=== PATIENT | male | born 2000 | race Asian ===

== ENCOUNTER 2019-05-25 09:26 | Emergency (ER) | payer OTHER ==
[~2019-05-25] VITALS: Ht 182.9 cm; Wt 90.7 kg
[2019-05-25] MEDS ORDERED: IV NORMAL SALINE 1,000ML 1,000 ML IV SCH (10:02)
--- NOTE | 2019-05-25 10:05 | PHYS DOC ---
Past History Past Surgical History: Appendectomy Adult General Chief Complaint Chief Complaint: ABDOMINAL PAIN HPI HPI Patient is a 18-year-old male who presented to ER today for evaluation of lower abdominal pain, associated with some nausea since yesterday. Patient also complaint of been constipated for a few days. he denies any fever, no blood in his stool. Patient has history of previous appendectomy. Nothing makes the pain worse or better. Patient described the pain is aching cramming in nature. All other ROS is negative unless otherwise noted in HPI Review of Systems Review of Systems See above Physical Exam Physical Exam See above Constitutional: Well developed, well nourished, no acute distress, non-toxic appearance. [] HENT: Normocephalic, atraumatic, bilateral external ears normal, oropharynx moist, no oral exudates, nose normal. [] Eyes: PERRLA, EOMI, conjunctiva normal, no discharge. [] Neck: Normal range of motion, no tenderness, supple, no stridor. [] Cardiovascular:Heart rate regular rhythm, no murmur [] Lungs & Thorax: Bilateral breath sounds clear to auscultation [] Abdomen: Bowel sounds normal, soft, There is tenderness to palpation in suprapubic area, NO rebound, no guarding, no masses, no pulsatile masses. [] Skin: Warm, dry, no erythema, no rash. [] Back: No tenderness, no CVA tenderness. [] Extremities: No tenderness, no cyanosis, no clubbing, ROM intact, no edema. [] Neurologic: Alert and oriented X 3, normal motor function, normal sensory func tion, no focal deficits noted. [] Psychologic: Affect normal, judgement normal, mood normal. [] EKG EKG [] Radiology/Procedures Radiology/Procedures [][address] [address] IMAGING REPORT Signed PATIENT: YANNI HUGGINS LACCOUNT: [id number] : 2000 LOCATION: ER AGE: 18 SEX: M EXAM STATUS: REG ER ORD. PHYSICIAN: MIR GROSSMAN DO REASON: Abdominal pain, nausea PROCEDURE: CT ABD PELV W/ IV CONTRST ONLY EXAM: CT Abdomen and Pelvis with IV contrast INDICATION: Abdominal pain and nausea TECHNIQUE: Multi-detector row CT images were acquired from the lung bases through the abdomen and pelvis with the use of IV contrast. Sagittal and coronal images were acquired from the transaxial data. All CT scans performed at this facility utilize dose optimization techniques as appropriate to the exam, including the following: Automated exposure control and adjustment of the mA and/or KV according to patient size (this includes techniques or standardized protocols for targeted exams where dose is indication/reason for exam). IV CONTRAST: Administered ORAL CONTRAST: Not administered DLP 1511 mGycm COMPARISON: None FINDINGS: LOWER CHEST: Unremarkable LIVER: Moderate diffuse hepatic steatosis. BILIARY SYSTEM: Gallbladder is unremarkable. Bile ducts are not dilated. PANCREAS: Unremarkable SPLEEN: Unremarkable ADRENALS: Unremarkable KIDNEYS & URETERS: Unremarkable BLADDER: Unremarkable REPRODUCTIVE ORGANS: Unremarkable GASTROINTESTINAL: The stomach, small bowel, and colon are unremarkable. The appendix is surgically absent. MESENTERY/PERITONEUM/RETROPERITONEUM: Unremarkable VASCULAR: Unremarkable LYMPH NODES: Mildly prominent mesenteric lymph nodes are present diffusely. No bulky adenopathy OSSEOUS & SOFT TISSUES: Unremarkable IMPRESSION: Mildly reactive mesenteric lymph nodes and fatty liver. Otherwise unremarkable CT of the abdomen and pelvis. No evidence of bowel Course & Med Decision Making Course & Med Decision Making Pertinent Labs and Imaging studies reviewed. (See chart for details) [] Dragon Disclaimer Dragon Disclaimer This electronic medical record was generated, in whole or in part, using a voice recognition dictation system. Departure Departure: Impression: Primary Impression: Abdominal pain Disposition: 01 HOME, SELF-CARE Condition: STABLE Referrals: AINSLEY HUGHES MD (PCP) FOLLOW UP WITH YOUR DOCTOR. Patient Instructions: Abdominal Pain Additional Instructions: Thank you for visiting our Emergency Department. We appreciate you trusting us with your care. If any additional problems come up don't hesitate to return to visit us. Please follow up with your primary care provider so they can plan eric tional care if needed and know about the problem that you had. If symptoms worsen come back to the Emergency Department. Any concerning symptoms that start such as chest pain, shortness of air, weakness or numbness on one side of the body, running high fevers or any other concerning symptoms return to the ER. Scripts Ondansetron Hcl (ZOFRAN) 8 Mg Tablet 1 TAB PO Q8HRS for NAUSEA, #12 TAB 1 Refill Prov: MIR GROSSMAN DO 05/25/19 MIR GROSSMAN DO May 25, 2019 10:05
[2019-05-25] MEDS ORDERED: ONDANSETRON PF 4 MG/2 ML VIAL. IVP ONE (10:30)
[2019-05-25 10:44] VITALS: BP 148/73
[2019-05-25 10:53] LABS: BASO % 0 % (0-3); EOS % 0 % (0-3); HEMATOCRIT 51.5 % (39.0-53.0); HEMOGLOBIN 17.3 g/dL (13.0-17.5); LYMPH # 1.3 x10^3/uL (1.0-4.8); LYMPH % 10 % (24-48); MEAN CORPUSCULAR HEMOGLOBIN 30 pg (25-35); MEAN CORPUSCULAR HGB CONC 34 g/dL (31-37); MEAN CORPUSCULAR VOLUME 88 fL (79-100); MONO # 0.8 x10^3/uL (0.0-1.1); MONO % 6 % (0-9); NEUT # 11.1 x10^3uL (1.8-7.7); NEUT % 84 % (31-73); PLATELET COUNT 247 x10^3/uL (140-400); RED BLOOD COUNT 5.83 x10^6/uL (4.30-5.70); WHITE BLOOD COUNT 13.3 x10^3/uL (4.0-11.0)
[2019-05-25 11:04] LABS: CALCIUM 9.2 mg/dL (8.5-10.1); CREATININE 0.9 mg/dL (0.7-1.3); GFR 108.7; POTASSIUM 3.6 mmol/L (3.5-5.1)
[2019-05-25 11:14] LABS: ALBUMIN 4.1 g/dL (3.4-5.0); ALBUMIN/GLOBULIN RATIO 0.9 (1.0-1.7); TOTAL BILIRUBIN 1.3 mg/dL (0.2-1.0); TOTAL PROTEIN 8.5 g/dL (6.4-8.2)
[2019-05-25] MEDS ORDERED: IOHEXOL 300 MG/ML 75 ML VIAL. IV ONE (11:30)
[2019-05-25] MEDS ORDERED: CONTRAST GIVEN MC PRN (11:30)
[2019-05-25 11:41] LABS: CLARITY,URINE CLEAR; COLOR,URINE YELLOW
--- NOTE | 2019-05-25 11:41 | RAD ---
EXAM: CT Abdomen and Pelvis with IV contrast INDICATION: Abdominal pain and nausea TECHNIQUE: Multi-detector row CT images were acquired from the lung bases through the abdomen and pelvis with the use of IV contrast. Sagittal and coronal images were acquired from the transaxial data. All CT scans performed at this facility utilize dose optimization techniques as appropriate to the exam, including the following: Automated exposure control and adjustment of the mA and/or KV according to patient size (this includes techniques or standardized protocols for targeted exams where dose is indication/reason for exam). IV CONTRAST: Administered ORAL CONTRAST: Not administered DLP 1511 mGycm COMPARISON: None FINDINGS: LOWER CHEST: Unremarkable LIVER: Moderate diffuse hepatic steatosis. BILIARY SYSTEM: Gallbladder is unremarkable. Bile ducts are not dilated. PANCREAS: Unremarkable SPLEEN: Unremarkable ADRENALS: Unremarkable KIDNEYS & URETERS: Unremarkable BLADDER: Unremarkable REPRODUCTIVE ORGANS: Unremarkable GASTROINTESTINAL: The stomach, small bowel, and colon are unremarkable. The appendix is surgically absent. MESENTERY/PERITONEUM/RETROPERITONEUM: Unremarkable VASCULAR: Unremarkable LYMPH NODES: Mildly prominent mesenteric lymph nodes are present diffusely. No bulky adenopathy OSSEOUS & SOFT TISSUES: Unremarkable IMPRESSION: Mildly reactive mesenteric lymph nodes and fatty liver. Otherwise unremarkable CT of the abdomen and pelvis. No evidence of bowel obstruction, acute inflammation or perforation Electronically signed by: Brown Soliz MD (05/25/2019 11:38 AM) [facility]
[2019-05-25 11:42] LABS: BACTERIA,URINE 0 /HPF (0-FEW); BILIRUBIN,URINE NEG (NEG); GLUCOSE,URINE NEG (NEG); NITRITE,URINE NEG (NEG); RBC,URINE OCC /HPF (0-2); SQUAMOUS EPITHELIAL CELL,UR FEW /LPF; UROBILINOGEN,URINE 0.2 mg/dL (0.2 mg/dL)
[2019-05-25] MEDS ORDERED: KETOROLAC 30 MG/ML VIAL. IVP ONE (12:00)
[2019-05-25] MEDS ORDERED: ONDA8TAB9 PO (12:41)
== END 2019-05-25 12:51 | disposition home or self-care (01) ==
LOC: ER 09:26
DX: R10.30 Lower abdominal pain, unspecified (principal); R11.0 Nausea; Z90.49 Acquired absence of other specified parts of digestive tract
CPT/HCPCS: 36415; 74177; 80053; 81001; 83690; 85025; 96374; 96375; 99285; J1885; J2405; Q9967; J7030

== ENCOUNTER 2019-11-30 01:01 | Emergency (ER) | payer OTHER ==
[~2019-11-30] VITALS: Ht 180.3 cm; Wt 114.7 kg
[~2019-11-30 01:01] MED LIST: ONDA8TAB9 PO
[2019-11-30] MEDS ORDERED: IV RINGERS SOLUTION,LACTATED 1,000 ML IV SCH (01:12)
--- NOTE | 2019-11-30 01:12 | PHYS DOC ---
Past History Past Medical History: Anxiety, High Cholesterol Past Surgical History: Appendectomy Alcohol Use: None Drug Use: None General Adult HPI: HPI: ".. I ve been having this chest pain now ... off and on since .. .. I did have some work up for it in [place].. .. they said the blood work and ekg .. chest xray were negative.. 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 . it seem s to be worse since .. I started taking classes on line and at .. 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 It it happen s two or three times a month now.. It been somewhat constant since yesterday... it seems now asso ciated.. with some nausea.. .. It antonio would not let me rest tonight... ".. " I drove myself here.. 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 Patient states chest pain has been intermittent. Pain usually lasts 1 to a maximum of 5 minutes. There may be some association with social stresses- move here from [place], loss of belongings in the move that remain in [place]. Recent stressors of school. Patient also states his seasonal allergies are much worse here in [place] compared to [place]. Patient has not had any cardiac stress testing. Patient denies any recent travel outside [facility]. Patient denies any trauma. Patient denies any fever chills or cough. Patient was seen here on 05/25 for abdomen pain shortly after his move here with his spouse in May. Patient has been using a lot more caffeine recently. Patient denies any dysrhythmias with the chest pain. Patient has had some recent increase in reflux or GERD complaints. No tarry stools. There is some family history of cardiac disease with grandfather and mother had a cardiac procedure that stop a rapid irregular heart rate. Both grandfather and mother symptoms started in ages 40s . No history of coagulopathy, DVTs or pulmonary embolisms with him or family members. Patient has had history of previous elevated triglycerides. Review of Systems: Review of Systems: Constitutional: Denies fever or chills Eyes: Denies change in visual acuity HENT: Denies nasal congestion or sore throat Respiratory: Denies cough or shortness of breath Cardiovascular: Hx of short intermittent episodes of chest pain since February 2019 GI: Denies abdominal pain, nausea, vomiting, bloody stools or diarrhea : Denies dysuria Musculoskeletal: Denies back pain or joint pain Integument: Denies rash Neurologic: Denies headache, focal weakness or sensory changes Endocrine: Denies polyuria or polydipsia Lymphatic: Denies swollen glands Psychiatric: Denies depression or anxiety Heart Score: HEART Score for Chest Pain: HEART Score for Chest Pain Response (Comments) Value History Slighlty/Non-Suspicious 0 ECG Nonspecific Repolarizatio 1 Age < 45 0 Risk Factors No Risk Factors 0 Troponin < Normal Limit 0 Total 1 Risk Factors: Risk Factors: DM, Current or recent (<one month) smoker, HTN, HLP, family history of CAD, obesity. Risk Scores: Score 0 - 3: 2.5% MACE over next 6 weeks - Discharge Home Score 4 - 6: 20.3% MACE over next 6 weeks - Admit for Clinical Observation Score 7 - 10: 72.7% MACE over next 6 weeks - Early Invasive Strategies Family History: Family History: Rapid Heart rates with mother- txed with procedure?-Age 40, ablation, history of cardiac disorder with grandfather starting at age 40 Current Medications: Current Meds: See nursing for home meds Allergies: Allergies: Allergies Coded Allergies Type Severity Reaction Last Updated Verified No Known Drug Allergies 05/25/19 No Physical Exam: PE: Constitutional: no acute distress, non-toxic appearance. [] HENT: Normocephalic, atraumatic, bilateral external ears normal, oropharynx moist, no oral exudates, nose normal. Plastic ear studs . Eyes: PERRLA, EOMI, conjunctiva normal, no discharge. [] Neck: Normal range of motion, no tenderness, supple, no stridor. [] Cardiovascular:Heart rate regular rhythm, no murmur []. The patient does have an occasional PVC per monitor. Was noted to have occasional dropped beat as of almost [place] heart block type 2. Lungs & Thorax: Bilateral breath sounds equal apex on auscultation [] Abdomen: Bowel sounds normal, soft, no tenderness, no masses, no pulsatile masses. Old surgery scars. Skin: Warm, dry, no erythema, no rash. [] Back: No tenderness, no CVA tenderness. [] Extremities: No tenderness, no cyanosis, no clubbing, ROM intact, no edema. [] No cording appreciated. Neurologic: Alert and oriented X 3, normal motor function, normal sensory fu nction, no focal deficits noted. [] Psychologic: Affect anxious, judgement normal, mood normal. [] EKG: EKG: My interpretation EKG shows a sinus rhythm. Does have an acetone 1 and 2. No findings of acute STEMI. Was noted to have occasional PVCs on monitor and occasional dropped beat due to a prolonged VT interval .[] Radiology/Procedures: Radiology/Procedures: [][address] [address] IMAGING REPORT Signed PATIENT: YANNI HUGGINS LACCOUNT: [id number] : 2000 LOCATION: ER AGE: 19 SEX: M EXAM STATUS: REG ER ORD. PHYSICIAN: KALEB HAMEED MD REASON: cp PROCEDURE: CHEST PA & LATERAL EXAM: CHEST PA LATERAL INDICATION: Reason: cp / Spl. Instructions: / History: . TECHNIQUE: PA and lateral views COMPARISON: abdomen CT 05/25/19 FINDINGS: The heart size is normal. The great vessels appear unremarkable. There is no hilar or mediastinal mass. The lungs are clear. There is no pleural effusion or pneumothorax. There are no significant osseous abnormalities. IMPRESSION: No active cardiopulmonary disease. Electronically signed by: Davida Soliz MD (11/30/2019 3:04 AM) [facility] [place] DICTATED AND SIGNED BY: DAVIDA SOLIZ MD DATE: 11/30/19 0304 CC: KALEB HAMEED MD; AINSLEY HUGHES MD ~ Course & Med Decision Making: Course & Med Decision Making Pertinent Labs and Imaging studies reviewed. (See chart for details) Reviewed ED work-up of labs, chest x-ray and EKG with patient. Patient declines admission for chest pain rule out at this time. Patient reduce his caffeine use. Patient to follow-up with primary care at [place]. Patient follow-up with cardiology. Patient consider outpatient stress testing. Patient return if any concerns. Must follow-up pending labs since previous history of elevated triglycerides Impression: 1. Atypical Chest Pain 2. Anxiety 3. Mild leukocytosis 11.9 4. Mild elevation ALT 80 and alk phos 134 5. Suspect viral syndrome 6. History of elevated triglycerides [] Dragon Disclaimer: Dragon Disclaimer: This electronic medical record was generated, in whole or in part, using a voice recognition dictation system. Departure Departure: Disposition: HOME/RESIDENCE PRIOR TO ADM Condition: STABLE Referrals: AINSLEY HUGHES MD (PCP) Scripts Ibuprofen (IBUPROFEN) 800 Mg Tablet 800 MG PO tidprn for pain or fever, #120 TAB Prov: KALEB HAMEED MD 11/30/19 Acetaminophen (ACETAMINOPHEN) 500 Mg Tablet 1000 MG PO QIDPRN PRN for pain , fever, #120 TAB Prov: KALEB HAMEED MD 11/30/19 Justification of Admission: Justification of Admission: Justification of Admission Dx: N/A Dragon Disclaimer This chart was dictated in whole or in part using Voice Recognition software in a busy, high-work load, and often noisy Emergency Department environment. It may contain unintended and wholly unrecognized errors or omissions. KALEB HAMEED MD Nov 30, 2019 01:12
[2019-11-30] MEDS ORDERED: ASPIRIN CHEWABLE 81 MG TABLET. PO ONE (01:15)
--- NOTE | 2019-11-30 01:16 | EKG ---
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
[2019-11-30] MEDS ORDERED: ASPIRIN CHEWABLE 81 MG TABLET. ONE (01:20)
[2019-11-30 01:33] LABS: BASO # 0.1 x10^3/uL (0.0-0.2); BASO % 1 % (0-3); EOS # 0.1 x10^3/uL (0.0-0.7); EOS % 1 % (0-3); HEMATOCRIT 48.7 % (39.0-53.0); HEMOGLOBIN 16.8 g/dL (13.0-17.5); LYMPH # 3.4 x10^3/uL (1.0-4.8); LYMPH % 28 % (24-48); MEAN CORPUSCULAR HEMOGLOBIN 31 pg (25-35); MEAN CORPUSCULAR HGB CONC 34 g/dL (31-37); MEAN CORPUSCULAR VOLUME 89 fL (79-100); MONO % 8 % (0-9); NEUT # 7.4 x10^3uL (1.8-7.7); NEUT % 62 % (31-73); PLATELET COUNT 267 x10^3/uL (140-400); RED CELL DISTRIBUTION WIDTH 12.6 % (11.5-14.5); WHITE BLOOD COUNT 11.9 x10^3/uL (4.0-11.0)
[2019-11-30 01:40] LABS: ANION GAP 9 (6-14); BLOOD UREA NITROGEN 11 mg/dL (8-26); CARBON DIOXIDE 29 mmol/L (21-32); CHLORIDE 102 mmol/L (98-107); CREATININE 1.1 mg/dL (0.7-1.3); GFR 85.3; GLUCOSE 116 mg/dL (70-99); POTASSIUM 3.9 mmol/L (3.5-5.1); SODIUM 140 mmol/L (136-145)
[2019-11-30 01:52] LABS: ALBUMIN 4.2 g/dL (3.4-5.0); ALK PHOS 134 U/L (46-116); ALT (SGPT) 80 U/L (16-63); AST (SGOT) 30 U/L (15-37); DIRECT BILIRUBIN 0.2 mg/dL (0.0-0.2); LIPASE 117 U/L (73-393); MAGNESIUM 2.2 mg/dL (1.8-2.4); TOTAL BILIRUBIN 0.8 mg/dL (0.2-1.0); TOTAL PROTEIN 8.2 g/dL (6.4-8.2)
[2019-11-30 01:53] LABS: BARBITURATES NEG (NEG); BENZODIAZEPINES NEG (NEG); CANNABINOIDS NEG (NEG); COCAINE NEG (NEG); METHADONE NEG (NEG); OPIATES NEG (NEG); PHENCYCLIDINE NEG (NEG)
[2019-11-30 01:55] LABS: AMPHETAMINE/METHAMPHETAMINE NEG (NEG)
[2019-11-30 02:03] LABS: BILIRUBIN,URINE NEG (NEG); CLARITY,URINE CLEAR; COLOR,URINE YELLOW; GLUCOSE,URINE NEG (NEG)
[2019-11-30 02:04] LABS: AMORPHOUS SEDIMENT,UR PRESENT /HPF; BACTERIA,URINE 0 /HPF (0-FEW); NITRITE,URINE NEG (NEG); RBC,URINE OCC /HPF (0-2); SQUAMOUS EPITHELIAL CELL,UR FEW /LPF; UROBILINOGEN,URINE 0.2 mg/dL (0.2 mg/dL); WBC,URINE OCC /HPF (0-4)
[2019-11-30 03:00] VITALS: BP 147/59
[2019-11-30] MEDS ORDERED: ACET500T68 PO (03:07)
[2019-11-30] MEDS ORDERED: IBUP800T19 PO (03:07)
--- NOTE | 2019-11-30 03:07 | RAD ---
EXAM: CHEST PA LATERAL INDICATION: Reason: cp / Spl. Instructions: / History: . TECHNIQUE: PA and lateral views COMPARISON: abdomen CT 05/25/19 FINDINGS: The heart size is normal. The great vessels appear unremarkable. There is no hilar or mediastinal mass. The lungs are clear. There is no pleural effusion or pneumothorax. There are no significant osseous abnormalities. IMPRESSION: No active cardiopulmonary disease. Electronically signed by: Brown Soliz MD (11/30/2019 3:04 AM) [facility] [place]
[2019-11-30] MEDS ORDERED: KETOROLAC 30 MG/ML VIAL. ONE (03:08)
[2019-11-30] MEDS ORDERED: KETOROLAC 30 MG/ML VIAL. IVP ONE (03:15)
[2019-11-30 20:23] LABS: THYROID STIM HORMONE (TSH) 4.17 uIU/mL (0.358-3.740)
== END 2019-11-30 03:20 | disposition home or self-care (01) ==
LOC: ER 01:01
DX: R07.89 Other chest pain (principal); F41.9 Anxiety disorder, unspecified; D72.829 Elevated white blood cell count, unspecified; R74.8 Abnormal levels of other serum enzymes; E78.00 Pure hypercholesterolemia, unspecified
CPT/HCPCS: 36415; 71046; 80048; 80061; 80076; 80307; 81001; 82550; 83690; 83735; 83880; 84443; 84484; 85025; 85379; 85610; 85730; 93005; 96374; 99285; J1885; J7120

== ENCOUNTER 2020-01-13 14:25 | Emergency (ER) | payer OTHER ==
[~2020-01-13] VITALS: Ht 180.3 cm; Wt 110.0 kg
[~2020-01-13 14:25] MED LIST changes: +ACET500T68 PO; +IBUP800T19 PO
[2020-01-13] MEDS ORDERED: OMEP-346 PO (14:44)
[2020-01-13 15:04] LABS: CLARITY,URINE BLOODY; COLOR,URINE RED
[2020-01-13 15:05] LABS: BILIRUBIN,URINE NEG (NEG); GLUCOSE,URINE NEG (NEG); NITRITE,URINE POS (NEG); UROBILINOGEN,URINE 0.2 mg/dL (0.2 mg/dL)
[2020-01-13 15:11] LABS: BACTERIA,URINE FEW /HPF (0-FEW); RBC,URINE TNTC /HPF (0-2); WBC,URINE >40 /HPF (0-4)
--- NOTE | 2020-01-13 15:42 | RAD ---
CT ABDOMEN PELVIS WO CONTRAST History: Reason: suprapubic pain / Spl. Instructions: / History: Technique: Noncontrast examination of the abdomen and pelvis. Coronal and sagittal reconstructions were performed. Exposure: One or more of the following individualized dose reduction techniques were utilized for this examination: 1. Automated exposure control 2. Adjustment of the mA and/or kV according to patient size 3. Use of iterative reconstruction technique. Comparison: None Findings: Lower chest: No consolidation or pleural effusion. Abdomen and pelvis: Geographic steatosis within the liver. The spleen is enlarged measures 14.8 cm. The adrenal glands, pancreas, and gallbladder are unremarkable. Normal appearance the kidneys. No hydronephrosis. Punctate nonobstructing left inferior renal calculus (series 3 image 62). Mild urinary bladder wall thickening. The urinary bladder is not significantly distended. Prior appendectomy. No evidence of bowel obstruction. No pathologic lymphadenopathy. No ascites. Bones: Multilevel level lumbar spondylosis with small disc extrusions most prominent L4-L5 and L5-S1. Mild L4-5 canal narrowing. Impression: 1. Urinary bladder wall thickening, may relate to nondistention. Correlate for cystitis. 2. Multilevel lumbar spondylosis most prominent L4-L5. 3. Punctate nonobstructing left inferior renal calculus. 4. Geographic steatosis within the liver. 5. Mild splenomegaly. Electronically signed by: Issa Maier DO (01/13/2020 3:39 PM) [facility]
[2020-01-13 16:16] LABS: BASO % 0 % (0-3); EOS % 0 % (0-3); HEMATOCRIT 47.3 % (39.0-53.0); HEMOGLOBIN 15.9 g/dL (13.0-17.5); LYMPH # 1.6 x10^3/uL (1.0-4.8); LYMPH % 12 % (24-48); MEAN CORPUSCULAR HEMOGLOBIN 30 pg (25-35); MEAN CORPUSCULAR HGB CONC 34 g/dL (31-37); MEAN CORPUSCULAR VOLUME 90 fL (79-100); MONO # 0.7 x10^3/uL (0.0-1.1); MONO % 5 % (0-9); NEUT # 10.4 x10^3uL (1.8-7.7); NEUT % 82 % (31-73); PLATELET COUNT 218 x10^3/uL (140-400); RED BLOOD COUNT 5.25 x10^6/uL (4.30-5.70); RED CELL DISTRIBUTION WIDTH 12.7 % (11.5-14.5); WHITE BLOOD COUNT 12.7 x10^3/uL (4.0-11.0)
[2020-01-13 16:18] LABS: CALCIUM 8.9 mg/dL (8.5-10.1); GFR 95.3; POTASSIUM 3.4 mmol/L (3.5-5.1)
[2020-01-13 16:24] LABS: TOTAL BILIRUBIN 1.2 mg/dL (0.2-1.0)
[2020-01-13 17:00] VITALS: BP 108/38
[2020-01-13] MEDS ORDERED: CEFP200T PO (17:24)
[2020-01-13] MEDS ORDERED: PHEN-444 PO (17:24)
--- NOTE | 2020-01-13 17:27 | PHYS DOC ---
Past History Past Medical History: GERD, High Cholesterol Past Surgical History: Appendectomy Alcohol Use: None Drug Use: None General Adult EDM: Chief Complaint: BLOOD IN URINE HPI: HPI: 19 yo M past medical history of GERD presents the ED with complaints of peeing blood that started earlier this morning with associated suprapubic pain and dysuria with increased urinary frequency, stating " I don't feel as if I am getting all my urine out." Patient states he sexually active with one male partner, his , engages rectal intercourse. Reports his has no urinary complaints or urethral discharge or rash. No prior history of STI or kidney stones. Review of systems: Denies associated fever, chills, cough, sore throat, dyspnea, chest pain, headache, neck stiffness, genital rash, urethral discharge, genital pain, flank pain, nausea, vomiting, diarrhea, myalgias, flulike symptoms, leg swelling, hemoptysis. Heart Score: Risk Factors: Risk Factors: DM, Current or recent (<one month) smoker, HTN, HLP, family history of CAD, obesity. Risk Scores: Score 0 - 3: 2.5% MACE over next 6 weeks - Discharge Home Score 4 - 6: 20.3% MACE over next 6 weeks - Admit for Clinical Observation Score 7 - 10: 72.7% MACE over next 6 weeks - Early Invasive Strategies Allergies: Allergies: Allergies Coded Allergies Type Severity Reaction Last Updated Verified No Known Drug Allergies 05/25/19 No Physical Exam: PE: Constitutional: Well developed, well nourished, no acute distress, non-toxic appearance. [] HENT: Normocephalic, atraumatic, Eyes: EOMI, conjunctiva normal, no discharge. [] Neck: Normal range of motion, supple, Cardiovascular:Heart rate regular rhythm, no murmur [] Lungs & Thorax: Bilateral breath sounds clear to auscultation [] Abdomen: Bowel sounds normal, soft, no tenderness, no masses, no pulsatile masses. [] Skin: Warm, dry, no erythema, no rash. [] Back: No tenderness, no CVA tenderness. [] Extremities: No tenderness, no cyanosis, no clubbing, ROM intact, no edema. [] Neurologic: Alert and oriented X 3, normal motor function, normal sensory function, no focal deficits noted. [] Psychologic: Affect normal, judgement normal, mood normal. [] Current Patient Data: Labs: Laboratory Tests Test 01/13/20 14:40 01/13/20 15:45 Urine Collection Type Unknown Urine Color Red Urine Clarity Bloody Urine pH 7.0 Urine Specific [place] 1.015 Urine Protein 100 mg/dl (NEG-TRACE) Urine Glucose (UA) Neg mg/dL (NEG) Urine Ketones (Stick) Neg mg/dL (NEG) Urine Blood Large (NEG) Urine Nitrite Pos (NEG) Urine Bilirubin Neg (NEG) Urine Urobilinogen Dipstick 0.2 mg/dL (0.2 mg/dL) Urine Leukocyte Esterase Large (NEG) Urine RBC Tntc /HPF (0-2) Urine WBC >40 /HPF (0-4) Urine Bacteria Few /HPF (0-FEW) White Blood Count 12.7 x10^3/uL (4.0-11.0) H Red Blood Count 5.25 x10^6/uL (4.30-5.70) Hemoglobin 15.9 g/dL (13.0-17.5) Hematocrit 47.3 % (39.0-53.0) Mean Corpuscular Volume 90 fL (79-100) Mean Corpuscular Hemoglobin 30 pg (25-35) Mean Corpuscular Hemoglobin Concent 34 g/dL (31-37) Red Cell Distribution Width 12.7 % (11.5-14.5) Platelet Count 218 x10^3/uL (140-400) Neutrophils (%) (Auto) 82 % (31-73) H Lymphocytes (%) (Auto) 12 % (24-48) L Monocytes (%) (Auto) 5 % (0-9) Eosinophils (%) (Auto) 0 % (0-3) Basophils (%) (Auto) 0 % (0-3) Neutrophils # (Auto) 10.4 x10^3uL (1.8-7.7) H Lymphocytes # (Auto) 1.6 x10^3/uL (1.0-4.8) Monocytes # (Auto) 0.7 x10^3/uL (0.0-1.1) Eosinophils # (Auto) 0.0 x10^3/uL (0.0-0.7) Basophils # (Auto) 0.0 x10^3/uL (0.0-0.2) Sodium Level 138 mmol/L (136-145) Potassium Level 3.4 mmol/L (3.5-5.1) L Chloride Level 102 mmol/L (98-107) Carbon Dioxide Level 28 mmol/L (21-32) Anion Gap 8 (6-14) Blood Urea Nitrogen 11 mg/dL (8-26) Creatinine 1.0 mg/dL (0.7-1.3) Estimated GFR (Cockcroft-Gault) 95.3 BUN/Creatinine Ratio 11 (6-20) Glucose Level 105 mg/dL (70-99) H Calcium Level 8.9 mg/dL (8.5-10.1) Total Bilirubin 1.2 mg/dL (0.2-1.0) H Aspartate Amino Transferase (AST) 22 U/L (15-37) Alanine Aminotransferase (ALT) 53 U/L (16-63) Alkaline Phosphatase 107 U/L (46-116) Total Protein 8.0 g/dL (6.4-8.2) Albumin 4.0 g/dL (3.4-5.0) Albumin/Globulin Ratio 1.0 (1.0-1.7) Vital Signs: Vital Signs Date Time Temp Pulse Resp B/P (MAP) Pulse Ox O2 Delivery O2 Flow Rate FiO2 01/13/20 14:36 98.9 EKG: EKG: [] Radiology/Procedures: Radiology/Procedures: [] IMAGING REPORT Signed PATIENT: YANNI HUGGINS LACCOUNT: [id number] : 2000 LOCATION: ER AGE: 19 SEX: M EXAM STATUS: REG ER ORD. PHYSICIAN: ROJAS JAMES DO REASON: suprapubic pain PROCEDURE: CT ABDOMEN PELVIS WO CONTRAST CT ABDOMEN PELVIS WO CONTRAST History: Reason: suprapubic pain / Spl. Instructions: / History: Technique: Noncontrast examination of the abdomen and pelvis. Coronal and sagittal reconstructions were performed. Exposure: One or more of the following individualized dose reduction techniques were utilized for this examination: 1. Automated exposure control 2. Adjustment of the mA and/or kV according to patient size 3. Use of iterative reconstruction technique. Comparison: None Findings: Lower chest: No consolidation or pleural effusion. Abdomen and pelvis: Geographic steatosis within the liver. The spleen is enlarged measures 14.8 cm. The adrenal glands, pancreas, and gallbladder are unremarkable. Normal appearance the kidneys. No hydronephrosis. Punctate nonobstructing left inferior renal calculus (series 3 image 62). Mild urinary bladder wall thickening. The urinary bladder is not significantly distended. Prior appendectomy. No evidence of bowel obstruction. No pathologic lymphadenopathy. No ascites. Bones: Multilevel level lumbar spondylosis with small disc extrusions most prominent L4-L5 and L5-S1. Mild L4-5 canal narrowing. Impression: 1. Urinary bladder wall thickening, may relate to nondistention. Correlate for cystitis. 2. Multilevel lumbar spondylosis most prominent L4-L5. 3. Punctate nonobstructing left inferior renal calculus. 4. Geographic steatosis within the liver. 5. Mild splenomegaly. Electronically signed by: Issa Maier DO (01/13/2020 3:39 PM) [facility] Course & Med Decision Making: Course & Med Decision Making Pertinent Labs and Imaging studies reviewed. (See chart for details) Concern for complicated UTI with cystitis (likely GI source from rectal intercourse), no hydronephrosis with left nephrolithiasis. Patient afebrile with no tachycardia, does not meet SIRS criteria. Does not have any urethral discharge or rash. 1 male sexual partner who is no signs of STDs. Will treat empirically for GC and advised patient to have his partner treated, to abstain from sex for 7 days. Will have patient follow-up with PMD and local health department for blood-borne STIs. Will DC with antibiotics and Azo. Strict ED return precautions given for flank pain, fever, flulike symptoms, nausea or vomiting. Encouraged urgent outpatient follow-up with PMD. Life-threatening processes were considered but are low suspicion at this time, given history and physical exam. Pt was educated on all prescription medications and adverse effects. All patient's questions were answered and pt was stable at time of discharge. Differential includes aortic dissection, aortic aneurysm, acute coronary syndrome, surgical abdomen (appendicitis, cholecystitis, ischemic bowel, strangulated hernia, etc), bowel obstruction or volvulus, bladder outlet obstruction, gastrointestinal bleeding, inflammatory bowel disease, peptic ulcer disease, sepsis, diverticular disease, ureterolithiasis, nephrolithiasis, ovarian or testicular torsion, ectopic , vaginal hemorrhage of infection I spoken with the patient and her caregivers. I explained the patient's condition, diagnoses and treatment plan based on the information available to me at this time. I have answered the patient and her caregiver's questions and addressed any concerns. The patient and her caregivers have a good understanding of patient's diagnosis, condition and treatment plan as can be expected at this point. Vital signs have been stable. Patient's condition is stable and appropriate for discharge from the emergency department. Patient will pursue further outpatient evaluation with primary care physician or other designated or consulting physician as outlined in the discharge instructions. The patient and/or caregivers are agreeable to this plan of care and follow-up instructions have been explained in detail. The patient and/or caregivers have received these instructions in written form and have expressed an understanding of the discharge instructions. The patient and/or caregivers are aware that any significant change of condition or worsening of symptoms should prompt immediate return to this or the closest emergency department or call to 911. Barak Disclaimer: Barak Disclaimer: This electronic medical record was generated, in whole or in part, using a voice recognition dictation system. Departure Departure: Impression: Primary Impression: Complicated urinary tract infection Additional Impressions: Cystitis Left nephrolithiasis Splenomegaly Hematuria Disposition: HOME/RESIDENCE PRIOR TO ADM Condition: STABLE Referrals: AINSLEY HUGHES MD (PCP) Patient Instructions: Dysuria, Kidney Stones Scripts Phenazopyridine Hcl (PHENAZOPYRIDINE HCL) 200 Mg Tablet 1 TAB PO TID for urinary discomfort for 3 Days, #9 TAB 0 Refills after food Prov: ROJAS JAMES DO 01/13/20 Cefpodoxime Proxetil (CEFPODOXIME PROXETIL) 200 Mg Tablet 1 TAB PO BID for uti for 14 Days, #28 TAB Prov: ROJAS JAMES DO 01/13/20 Justification of Admission: Justification of Admission: Justification of Admission Dx: N/A ROJAS JAMES DO Jan 13, 2020 17:27
[2020-01-13] MEDS ORDERED: cefTRIAXone IM 250 MG VIAL IM ONE (18:15)
[2020-01-13] MEDS ORDERED: AZITHROMYCIN 250 MG TABLET. PO ONE (18:15)
== END 2020-01-13 18:07 | disposition home or self-care (01) ==
LOC: ER 14:25
DX: N30.00 Acute cystitis without hematuria (principal); N20.0 Calculus of kidney; R16.1 Splenomegaly, not elsewhere classified; R31.9 Hematuria, unspecified; K21.9 Gastro-esophageal reflux disease without esophagitis; E78.00 Pure hypercholesterolemia, unspecified; Z90.49 Acquired absence of other specified parts of digestive tract
CPT/HCPCS: 36415; 74176; 80053; 81001; 85025; 87086; 96372; 99284; J0456; J0696

== ENCOUNTER 2021-09-28 14:33 | Emergency (ER) | payer OTHER ==
[~2021-09-28] VITALS: Ht 180.3 cm; Wt 113.9 kg
[~2021-09-28 14:33] MED LIST changes: +CEFP200T PO; +OMEP-346 PO; +PHEN-444 PO
[2021-09-28] MEDS ORDERED: IV NORMAL SALINE 1,000ML 1,000 ML IV ONE (15:15)
--- NOTE | 2021-09-28 15:23 | PHYS DOC ---
Past History Past Medical History: GERD, High Cholesterol Past Surgical History: Appendectomy Alcohol Use: None Drug Use: None General Adult EDM: Chief Complaint: DIZZY/LIGHT HEADED HPI: HPI: Patient is a 21-year-old male who presents with dizziness. Patient states he was at work working on his computer and when he stood up he felt dizzy. Patient states he felt like he was going to "pass out". Patient states that his symptoms have improved since arriving in the ER. Denies recent illness. Denies chest pain or shortness of breath. Patient has history of seasonal allergies and depression. Review of Systems: Review of Systems: ROS At least 10 ROS systems have been reviewed and are negative except as documented in the HPI. General: Negative except as outlined in HPI above. Skin: Negative except as outlined in HPI above. HEENT: Negative except as outlined in HPI above. Neck: Negative except as outlined in HPI above. Respiratory: Negative except as outlined in HPI above.. Cardiovascular: Negative except as outlined in HPI above. Abdomen: Negative except as outlined in HPI above. : Negative except as outlined in HPI above. Back/MSK: Negative except as outlined in HPI above. Neuro: Negative except as outlined in HPI above. Psych: Negative except as outlined in HPI above. Current Medications: Current Meds: Current Medications Medications (Trade) Dose Ordered Sig/Daniela Start Time Stop Time Status Last Admin Dose Admin Sodium Chloride 1,000 ml @ 1,000 mls/hr 1X ONCE 09/28/21 15:15 09/28/21 16:14 Allergies: Allergies: Allergies Coded Allergies Type Severity Reaction Last Updated Verified No Known Drug Allergies 05/25/19 No Physical Exam: PE: Constitutional: Well developed, well nourished, no acute distress, non-toxic appearance. [] HENT: Normocephalic, atraumatic, bilateral external ears normal, oropharynx moist, no oral exudates, nose normal. [] Eyes: PERRLA, EOMI, conjunctiva normal, no discharge. [] Neck: Normal range of motion, no tenderness, supple, no stridor. [] Cardiovascular:Heart rate regular rhythm, no murmur [] Lungs & Thorax: Bilateral breath sounds clear to auscultation [] Abdomen: Bowel sounds normal, soft, no tenderness, no masses, no pulsatile masses. [] Skin: Warm, dry, no erythema, no rash. [] Back: No tenderness, no CVA tenderness. [] Extremities: No tenderness, no cyanosis, no clubbing, ROM intact, no edema. [] Neurologic: Alert and oriented X 3, normal motor function, normal sensory function, no focal deficits noted. [] Psychologic: Affect normal, judgement normal, mood normal. [] EKG: EKG: Sinus rhythm. Heart rate [address] elevation or depression. [] Radiology/Procedures: Radiology/Procedures: [] Heart Score: C/O Chest Pain: No Risk Factors: Risk Factors: DM, Current or recent (<one month) smoker, HTN, HLP, family history of CAD, obesity. Risk Scores: Score 0 - 3: 2.5% MACE over next 6 weeks - Discharge Home Score 4 - 6: 20.3% MACE over next 6 weeks - Admit for Clinical Observation Score 7 - 10: 72.7% MACE over next 6 weeks - Early Invasive Strategies Course & Med Decision Making: Course & Med Decision Making Pertinent Labs and Imaging studies reviewed. (See chart for details) [] 21-year-old male presents with dizziness started when he stood up from his chair at work today. Patient symptoms have improved since arriving in the ER. Work-up consisted of labs, EKG, orthostatics. Patient given NS bolus. CBC, BMP were unremarkable. Orthostatics were also negative. Patient states that his symptoms have improved after receiving fluids. Patient's ambulating on his own without symptoms reoccurring. I discussed follow-up with PCP and return precautions. Patient verbalizes understanding of discharge instructions. Barak Disclaimer: Barak Disclaimer: This electronic medical record was generated, in whole or in part, using a voice recognition dictation system. Departure Departure: Impression: Primary Impression: Dizziness Disposition: HOME / SELF CARE / HOMELESS Condition: STABLE Referrals: AINSLEY HUGHES MD (PCP) Patient Instructions: Dizziness, [id number] Additional Instructions: You were seen in the emergency room for dizziness. All of your labs were unremarkable. You were given fluids while in the emergency room which improved your symptoms. Please follow-up with your PCP. Return to the emergency room if you have worsening symptoms or concerns such as chest pain, shortness of breath. EMERGENCY DEPARTMENT GENERAL DISCHARGE INSTRUCTIONS Thank you for coming to [facility] (ED) today and trusting us with you care. We trust that you had a positivie experience in our Emergency Department. If you wish to speak to the department management, you may call the director at [phone]. YOUR FOLLOW UP INSTRUCTIONS ARE FOLLOWS: 1. Do you have a private Doctor? If you do not have a private doctor, please ask for a resource list of physicians or clinics that may be able to assist you with follow up care. 2. The Emergency Physician has interpreted your x-rays. The X-Ray specialist will also review them. If there is a change in the findings, you will be notified in 48 hours when at all possible. 3. A lab test or culture has been done, your results will be reviewed and you will be notified if you need a change in treatment. ADDITIONAL INSTRUCTIONS AND INFORMATION: 1. Your care today has been supervised by a physician who is specially trained in emergency care. Many problems require more than one evaluation for a complete diagnosis and treatment. We recommend that you schedule your follow up appointment as recommended to ensure complete treatment of you illness or injury. If you are unable to obtain follow up care and continue to have a problem, or if your condition worsens, we recommend that you return to the ED. 2. We are not able to safely determine your condition over the phone nor are we able to give sound medical advice over the phone. For these safety reasons, if you call for medical advice we will ask you to come to the ED for further evaluation. 3. If you have any questions regarding these discharge instructions please call the ED at [phone]. SAFETY INFORMATION: In the interest of safety, wellness, and injury prevention; we encourage you to wear your sealbelt, if you smoke; quite smoking, and we encourage family to use a protective helmet for bicycling and other sporting events that present an increased risk for head injury. IF YOUR SYMPTOMS WORSEN OR NEW SYMPTOMS DEVELOP, OR YOU HAVE CONCERNS ABOUT YOUR CONDITION; OR IF YOUR CONDITION WORSENS WHILE YOU ARE WAITING FOR YOUR FOLLOW UP APPOINTMENT; EITHER CONTACT YOUR PRIMARY CARE DOCTOR, THE PHYSICIAN WHOSE NAME AND NUMBER YOU WERE GIVEN, OR RETURN TO THE ED IMMEDIATELY. KASHIF HUANG APRN September 28, 2021 15:23
[2021-09-28 15:48] LABS: BASO % 0 % (0-3); EOS # 0.1 x10^3/uL (0.0-0.7); EOS % 1 % (0-3); HEMATOCRIT 47.7 % (39.0-53.0); HEMOGLOBIN 16.4 g/dL (13.0-17.5); LYMPH # 1.6 x10^3/uL (1.0-4.8); LYMPH % 22 % (24-48); MEAN CORPUSCULAR HEMOGLOBIN 30 pg (25-35); MEAN CORPUSCULAR HGB CONC 34 g/dL (31-37); MEAN CORPUSCULAR VOLUME 88 fL (79-100); MONO # 0.5 x10^3/uL (0.0-1.1); MONO % 7 % (0-9); NEUT # 5.1 x10^3uL (1.8-7.7); NEUT % 69 % (31-73); PLATELET COUNT 231 x10^3/uL (140-400); RED BLOOD COUNT 5.41 x10^6/uL (4.30-5.70); WHITE BLOOD COUNT 7.4 x10^3/uL (4.0-11.0)
[2021-09-28 16:02] LABS: CALCIUM 9.2 mg/dL (8.5-10.1); GFR 93.4; POTASSIUM 3.7 mmol/L (3.5-5.1)
[2021-09-28 17:00] VITALS: BP 121/62
== END 2021-09-28 17:10 | disposition home or self-care (01) ==
LOC: ER 14:33
DX: R42 Dizziness and giddiness (principal); K21.9 Gastro-esophageal reflux disease without esophagitis; E78.00 Pure hypercholesterolemia, unspecified
CPT/HCPCS: 36415; 80048; 85025; 93005; 96360; 96361; 99285; J7030